=== PATIENT | female | born 1975 | race Caucasian/White ===

== ENCOUNTER 2016-10-10 15:20 | Emergency (ER) | payer MEDICARE, MEDICAID ==
[2016-10-10] MEDS ORDERED: diphenhydrAMINE HCl 50 MG/ML 1 ML VIAL ONE (15:36)
[2016-10-10] MEDS ORDERED: Metoclopramide HCl 10 MG/2 ML VIAL ONE (15:36)
[2016-10-10] MEDS ORDERED: Ketorolac Tromethamine 30 MG/ML VIAL ONE (15:36)
== END 2016-10-10 16:31 | disposition home or self-care (01) ==
LOC: BURERS 15:20
DX: G43.909 Migraine, unspecified, not intractable, without status migrainosus (principal); E11.9 Type 2 diabetes mellitus without complications; E78.5 Hyperlipidemia, unspecified; E03.9 Hypothyroidism, unspecified; F17.210 Nicotine dependence, cigarettes, uncomplicated; Z79.899 Other long term (current) drug therapy
CPT/HCPCS: 96361; 96374; 96375; J1200; J1885; J2765

== ENCOUNTER 2021-05-20 21:01 | Emergency (ER) | payer OTHER, SELFPAY ==
[2021-05-20] MEDS ORDERED: Ketorolac Tromethamine 30 MG/ML VIAL ONE (21:24)
[2021-05-20] MEDS ORDERED: Metoclopramide HCl 10 MG/2 ML VIAL ONE (21:24)
[2021-05-20] MEDS ORDERED: diphenhydrAMINE 50 MG/ML VIAL ONE (21:24)
== END 2021-05-20 22:18 | disposition home or self-care (01) ==
LOC: BURERS 21:01
DX: G43.909 Migraine, unspecified, not intractable, without status migrainosus (principal); E11.9 Type 2 diabetes mellitus without complications; E78.5 Hyperlipidemia, unspecified; E78.00 Pure hypercholesterolemia, unspecified; E03.9 Hypothyroidism, unspecified; F17.210 Nicotine dependence, cigarettes, uncomplicated
CPT/HCPCS: 96374; 96375; 99406; J1200; J1885; J2765

== ENCOUNTER 2021-12-15 10:32 | Emergency (ER) | payer OTHER, SELFPAY ==
[2021-12-15 11:29] LABS: #Basophils 0.1 thou/uL (0.0-0.2); #Eosinphils 0.1 thou/uL (0.0-0.7); #Lymphocytes 2.3 thou/uL (1.20-3.40); #Monocytes 0.5 thou/uL (0.11-0.59); #Neutrophils 6.1 thou/uL (1.40-6.50); %Basophils 0.9 % (0.0-1.0); %Eosinophils 1.4 % (0.0-10.0); %Lymphocytes 24.9 % (21.0-51.0); %Monocytes 5.9 % (0.0-10.0); %Neutrophils 66.9 % (42.0-75.0); Hemoglobin 13.8 g/dL (12.0-16.0); Mean Corpuscular HGB CONC 34.3 g/dL (32.0-36.0); Mean Corpuscular Hemoglobin 29.8 pg (27.0-31.0); Mean Platelet Volume 7.5 fL (7.4-10.4); Platelet Count 230 thou/uL (130-400); RBC Distribution Width 11.9 % (11.5-14.5); Red Blood Cell (RBC) Count 4.64 mill/uL (4.20-5.40); White Blood Cell (WBC) Count 9.2 thou/uL (4.8-10.8)
[2021-12-15 11:39] LABS: ALT (SGPT) 10 U/L (8-55); AST (SGOT) 12 U/L (5-34); Albumin 3.8 g/dL (3.5-5.0); Alkaline Phosphatase 49 U/L (40-110); Anion Gap 12 mmol/L (10-20); BUN (Urea Nitrogen) 15 mg/dL (7.0-18.7); Bilirubin Negative (Negative); Bilirubin, Total 0.4 mg/dL (0.2-1.2); Blood, Urine Negative (Negative); Calc. Creatinine Clearance 0 mL/min (70-130); Calcium 9.3 mg/dL (7.8-10.44); Carbon Dioxide 23 mmol/L (22-29); Chloride 108 mmol/L (98-107); Clarity Clear (Clear); Estimated GFR 103; Globulin 2.1 g/dL (2.4-3.5); Glucose 95 mg/dL (70-105); Glucose, Urine (Dipstick) Negative (Negative); Ketone, Urine Trace mg/dL (Negative); Leukocyte Negative (Negative); Magnesium 1.8 mg/dL (1.6-2.6); Nitrite Negative (Negative); Protein, Total 5.9 g/dL (6.0-8.3); Protein, Urine (Dipstick) Negative (Neg-Trace); Sodium 139 mmol/L (136-145); Urobilinogen 0.2 mg/dL (Less than 2); pH, Urine 5.5 (5.0-9.0)
[2021-12-15] MEDS ORDERED: Ondansetron PF 4 MG/2 ML Vial ONE (11:55)
== END 2021-12-15 20:57 | disposition home or self-care (01) ==
LOC: BURERS 10:32
DX: E86.0 Dehydration (principal); K21.9 Gastro-esophageal reflux disease without esophagitis; Z79.899 Other long term (current) drug therapy
CPT/HCPCS: 80053; 81003; 83735; 85025; 96361; 96374; J2405